=== PATIENT | female | born 1985 | race Caucasian/White ===

== ENCOUNTER → 2018-11-02 10:35 | Outpatient (CLI) | payer MEDICAID, SELFPAY ==
[2018-11-02 14:14] LABS: Progesterone Level 23.19 ng/mL (See Comment)
--- OUTSIDE RECORDS SUMMARY | 2019-02-03 18:51 | XMS RPT_ITS ---
:1985 Author Organization OHIP Care Team Providers Name Role Phone Pallavis, Donnell Attending Unavailable Seals, Donnell Attending Unavailable Seals, Donnell Attending Unavailable Vlad, Sis Attending Unavailable Self Referral, Patient Primary Care Unavailable Vlad, Sis Admitting Unavailable Vlad, Sis Attending Unavailable Self Referral, Patient Primary Care Unavailable Vlad, Sis Attending Unavailable Self Referral, Patient Primary Care Unavailable Vlad, Sis Admitting Unavailable Vlad, Sis Attending Unavailable Self Referral, Patient Primary Care Unavailable Vlad, Sis Attending Unavailable Self Referral, Patient Primary Care Unavailable Vlad, Sis Admitting Unavailable PROBLEMS PROBLEMS DATE TYPE CONDITION / CODE ATTENDING STATUS SOURCE 11/15/2018 Unknown O02.1 - Missed Donnell Fonseca [facility] [place] [facility] Community O02.1(ICD-10) Hospital Repository 11/11/2018 Unknown N97.0 - Female SealDonnell loya [facility] associated with Hospital anovulation / Repository N97.0(ICD-10) 11/11/2018 Unknown N91.2 - SealDonnell loya Active [place] Amenorrhea, Community unspecified / Hospital N91.2(ICD-10) Repository PROCEDURES PROCEDURES No Procedure Records FoundRESULTS RESULTS HCG TITER QUANT., Collected: 11/15/2018 Status: F Source: SHANA SERUM 3:02 PM [facility] [place] TYPE CODE TESTS RESULT OUT OF RANGE REFERENCE UNITS LAB L700.8000 <9 non-preg mIU/mL Normal HCG < 1 QUANT. Performed By: #### L700.8000 #### [facility] [address] [place], [address] PROGESTERONE LEVEL Collected: 11/11/2018 Status: F Source: SHANA 1:04 PM [facility] [place] TYPE CODE TESTS RESULT OUT OF REFERENCE UNITS RANGE LAB L509.4001 See Comment ng/mL Progesterone Normal 0.76 Result Comment: Progesterone Reference Table: UNITS Female: Follicular 0.15 - 1.40 ng/mL Luteal 3.34 - 25.56 ng/mL Mid-luteal 4.44 - 28.03 ng/mL Postmenopausal 0.0 - 0.73 ng/mL : 1st Trimester 11.22 - 90.00 ng/mL 2nd Trimester 25.55 - 89.40 ng/mL 3rd Trimester 48.40 -422.50 ng/mL Performed By: #### L509.4001 #### [facility] [address] [place], [address] HCG TITER QUANT., Collected: 11/11/2018 Status: F Source: SHANA SERUM 1:04 PM [facility] [place] TYPE CODE TESTS RESULT OUT OF RANGE REFERENCE UNITS LAB L700.8000 <9 non-preg mIU/mL Normal HCG 3 QUANT. Performed By: #### L700.8000 #### [facility] [address] [place], [address] PROGESTERONE LEVEL Collected: 11/02/2018 Status: F Source: SHANA 10:46 AM [facility] [place] Order Comment: TODAY IS CYCLE DAY 25. TYPE CODE TESTS RESULT OUT OF REFERENCE UNITS RANGE LAB L509.4001 See Comment ng/mL Progesterone Normal 23.19 Result Comment: Progesterone Reference Table: UNITS Female: Follicular 0.15 - 1.40 ng/mL Luteal 3.34 - 25.56 ng/mL Mid-luteal 4.44 - 28.03 ng/mL Postmenopausal 0.0 - 0.73 ng/mL : 1st Trimester 11.22 - 90.00 ng/mL 2nd Trimester 25.55 - 89.40 ng/mL 3rd Trimester 48.40 -422.50 ng/mL Performed By: #### L509.4001 #### [facility] [address] [place], [address] IGP W/HPV RFX Collected: 08/18/2018 Status: F Source: [facility] [id number] 4:15 PM [facility] REPOSITORY Order Comment: LMP: 8/27/18 TYPE CODE TESTS RESULT OUT OF RANGE REFERENCE UNITS LAB [id number](LO INC) Normal See Ref Lab Diagnosis: Report Performed By: #### [id number] #### [facility] Send Outs Subsection [facility] [place] [address] PATHOLOGY ([facility]) Observed: 08/18/2018 Status: F Source: [facility] 12:00 AM REPOSITORY FINAL GYNECOLOGIC CYTOLOGY REPORT [id number] SPECIMEN ADEQUACY Satisfactory for Evaluation. Endocervical cells/transformation zone component present. GENERAL CATEGORIZATION Negative for Intraepithelial Lesion or Malignancy DESCRIPTIVE DIAGNOSIS Reactive cellular changes associated inflammation and repair. COMMENT Reviewed by a pathologist due to previous abnormal history. CLINICAL HISTORY LMP: 07/12/2018 SPECIMEN (A) SCREENING CERVICAL/ENDOCERVICAL THIN PREP VIAL Performed at [facility], [address] [place] [address] Screened by: DAVID OWEN Driver Manager Signed Out by: BREA BYNUM M.D. Reported: 08/20/2018 Performed By: #### HOUSEHOLD REFRIGERATION MECHANIC #### [facility] [address] [place] [address] IGP W/HPV RFX Collected: 02/04/2018 Status: F Source: [facility] [id number] 4:57 PM [facility] REPOSITORY Order Comment: LMP- 01/02/2018 TYPE CODE TESTS RESULT OUT OF RANGE REFERENCE UNITS LAB [id number](LO INC) Normal See Ref Lab Diagnosis: Report Performed By: #### [id number] #### SANTIAG[facility] Send Outs Subsection [address] [place] [address] PATHOLOGY ([facility]) Observed: 02/04/2018 Status: F Source: [facility] 12:00 AM REPOSITORY FINAL GYNECOLOGIC CYTOLOGY REPORT [id number] SPECIMEN ADEQUACY Satisfactory for Evaluation. Endocervical cells/transformation zone component present. GENERAL CATEGORIZATION Negative for Intraepithelial Lesion or Malignancy DESCRIPTIVE DIAGNOSIS Shift in vaginal gil suggestive of bacterial vaginosis. COMMENT Reviewed by a pathologist due to previous abnormal history. CLINICAL HISTORY LMP: 01/02/2018 SPECIMEN (A) SCREENING CERVICAL/ENDOCERVICAL LIQUID-BASED PAP Performed at [facility], [address] [place] [address] Screened by: DAVID OWEN Driver Manager Signed Out by: DMITRI RENE M.D. Reported: 02/16/2018 Performed By: #### HOUSEHOLD REFRIGERATION MECHANIC #### [facility] [address] [place] [address] ALLERGIES ALLERGIES DATE TYPE / CODE NAME / CODE REACTION SEVERITY SOURCE Drug/[id number] codeine [id number] [address]) System Repository ENCOUNTERS ENCOUNTERS ADMIT/DISCHARGE ACCOUNT NUMBER ADMITTING ENCOUNTER LOCATION SOURCE CLASS 11/15/2018 [id number] Ambulatory [facility] ding:WOBLAB Repository 11/11/2018 [id number] Ambulatory [facility] ding:[facility] Repository 11/02/2018 [id number] Ambulatory [facility] ding:WOBLAB Repository 08/18/2018/08/18/20 [id number] Vlad, Sis [address] [facility] 08/18/2018/08/18/[id number] System :[facility] Repository om: Room 1 08/18/[id number] Repository 08/09/2018/08/09/[id number] System :[facility] Repository 02/04/2018/02/05/20 [id number] Vlad, Sis [address] ding[facility] Repository 02/04/2018/02/05/20 [id number] Vlad, Sis [address] :[facility] Repository om: Room 2 PAYERS PAYERS ENCOUNTER GUARANTOR PAYER SUBSCRIBER SOURCE 11/15/2018 FINN Primary FINN Saldana [id number] Insurance:CIELOBIN HEMPHILL: [facility] avi Number: [id number] [id number] Repository [address]Ogw: 440) Date:2018-11-15 O [phone] (KE) [address]ATTN: [place] [address]QR: 11/15/2018 Secondary NOT GIVENUNK Shana Insurance:SELF PAY [facility] Number: Effective Repository Date:2018-11-15 11/11/2018 FINN Primary FINN Shana [id number] Insurance:CARESOURCEP CHRISTOPHERDOB: [facility] Number: [id number] [id number] Repository [address]Xtq: 440) Date:2018-11-11P O [phone] (HP) [address]ATTN: [place] [address]UF: 11/11/2018 Secondary NOT GIVENUNK [place] Insurance:SELF PAY [facility] Number: Effective Repository Date:2018-11-11 11/02/2018 FINN Primary FINN [place] [id number] Insurance:CARESOURCEP CHRISTOPHERDOB: [facility] Number: [id number] [id number] Repository [address]Ofw: 440) Date:2018-11-02P O [phone] () [address]ATTN: [place] [address]LT: 11/02/2018 Secondary NOT GIVENUNK [place] Insurance:SELF PAY [facility] Number: Effective Repository Date:2018-11-02 08/18/2018 FINN L Primary [facility]N L [facility] Insurance:CARESOURCE CHRISTOPHERDOB: [facility] MCAIDPolicy Number: [id number] System [facility] [address] Effective [facility] [address] Repository [address] [place] [address] Date:2018-08-[address] [place] [address]Ylu: [id number] [phone]: Name:CD:[id number] (HP) [address] [place] [address] ()Tel: [phone]) [phone]: ([phone] 08/18/2018 [facility]1500 CHRISTOPHERDOB: [facility] [id number] [facility] Repository [address] [place] [address] Number: Effective [address] [address]Xix: Date:2018-08-18 [phone]: [id number] (HP) Name:CD:[id number] O (HP)Tel: (000) [address] [phone] (WP) [phone]: 08/18/2018 [facility] olicy Number: [id number] Repository [facility] [id number] Date:Plan [place] [phone]: Name:[facility] [phone]: [id number], [place] (HP) [phone]: [phone] (HP) [phone] 08/09/2018 [facility]: Insurance:1500 CHRISTOPHERDOB: [facility] [id number] [facility] Repository [address] [place] [address] Number: Effective [place], [place] [id number]: Date:2018-02-04 [phone]: [id number] (HP) Name:CD:[id number] O (HP)Tel: (000) [address], [place] [phone] (WP) [phone]: 02/04/2018 FINN L Primary FINN [place]ERTSB: [facility] Number: [id number] [facility] [address] Repository [address] [place] [address] Date:2018-02-04 - 1100[facility] [place] [place]Mar[place] [id number]: [id number] [id number]: Name:CD:[id number] (HP) [address], [place] (HP)Tel: (000) [phone]: (WP) [phone] 02/04/2018 FINN L Primary FINN [place]ERTSB: Insurance:[address] [place], [place] [address]B: [facility] [id number] [facility] [address] Repository [address] [place] [address] Number: Effective [address], [place] [id number]: Date:2017-07-30 - [phone]: [id number] (HP) Name:CD:[id number] O (HP)Tel: (000) [address], [place] [phone] (WP) [phone]:
== END ==
PROVIDERS: Visit Provider Obstetrics & Gynecology
DX: N97.0 Female infertility associated with anovulation (principal)
CPT/HCPCS: 36415; 84144

== ENCOUNTER → 2018-11-11 13:02 | Outpatient (CLI) | payer MEDICAID, SELFPAY ==
[2018-11-11 16:41] LABS: Progesterone Level 0.76 ng/mL (See Comment)
[2018-11-11 19:51] LABS: hCG Titer Quant., Serum 3 mIU/mL (<9 non-preg)
== END ==
PROVIDERS: Visit Provider Obstetrics & Gynecology
DX: N91.2 Amenorrhea, unspecified (principal); N97.0 Female infertility associated with anovulation
CPT/HCPCS: 36415; 84144; 84702

== ENCOUNTER → 2018-11-15 15:01 | Outpatient (CLI) | payer MEDICAID, SELFPAY ==
[2018-11-15 16:32] LABS: hCG Titer Quant., Serum < 1 mIU/mL (<9 non-preg)
== END ==
PROVIDERS: Visit Provider Obstetrics & Gynecology
DX: O02.1 Missed abortion (principal)
CPT/HCPCS: 36415; 84702

== ENCOUNTER → 2018-12-27 14:10 | Outpatient (CLI) | payer MEDICAID, SELFPAY ==
[2018-12-27 17:39] LABS: Chlamydia Trachomatis by PCR Negative (Negative); Neisserai gonorrhoeae by PCR Negative (Negative); Probe Check PASS; Sample Adequacy Control PASS; Specimen Processing Control PASS
[2018-12-31 18:36] LABS: HPV Reflexed? NOT INDICATED
== END ==
PROVIDERS: Referring Provider Obstetrics & Gynecology; Visit Provider Obstetrics & Gynecology
DX: Z12.4 Encounter for screening for malignant neoplasm of cervix (principal)
CPT/HCPCS: 87491; 87591; 88175; G0145

== ENCOUNTER → 2019-01-11 11:37 | Outpatient (CLI) | payer MEDICAID, SELFPAY ==
[2019-01-11 14:03] LABS: Color, Urine Yellow (Yellow); Glucose, Dipstick 50 mg/dl (Normal); Ketone-Dipstick Negative (Negative); Leukocyte Esterase-Dipstick Negative /ul (Negative); Nitrite-Dipstick Negative (Negative); Occult Blood-Urine Negative /ul (Negative); Protein-Dipstick Negative (Negative); Specific Gravity, Urine 1.015 (1.002-1.030); Urine Bilirubin Dipstick Negative (Negative); Urine Clarity Sl. Cloudy (Clear); Urine Urobilinogen Normal (Normal)
[2019-01-11 14:04] LABS: Absolute Lymphocyte Count 0.98 X10^3/ul (0.83-4.51); Absolute Neutrophil Count 2.8 X10^3/uL (2.0-7.7); Basophil# 0.01 X10^3/uL; Basophil% 0.2 % (0-1); Eosinophils% 2.2 % (0-5); Hematocrit 39.9 % (37-47); Lymphocyte # 0.98 X10^3/ul (4.0); Lymphocyte % 21.5 % (19-41); Mean Corp Hgb Conc 32.6 g/gl (32-36); Mean Corpuscular Hgb 29.8 pg (27.0-32.0); Mean Corpuscular Volume 91.5 fL (81-99); Mean Platelet Vol. 11.2 fl (6.2-12.0); Monocyte# 0.68 X10^3/uL; Monocyte% 14.9 % (0-10); Neutrophil # 2.77 X10^3/uL (2.7-7.7); Platelet Count 218 K/mm3 (150-450); RBC Distribution Width CV 13.2 % (11.6-14.6); RBC Distribution Width SD 43.2 fl (35.1-43.9); Red Blood Count 4.36 M/mm3 (4.2-5.4); White Blood Count 4.6 K/mm3 (4.4-11.0)
[2019-01-11 14:10] LABS: POSITIVE COUNT NO; POSITIVE DIFFERENTIAL NO; POSITIVE MORPHOLOGY NO
[2019-01-11 14:19] LABS: Thyroid Stim Hormone (TSH) 3.35 uIU/mL (0.358-3.74)
[2019-01-11 14:31] LABS: COTININE Drug Screen Negative (<200 ng/mL)
[2019-01-11 14:47] LABS: Amphetamine Urine VISTA NEGATIVE (<1000 ng/mL); Barbiturate Urine VISTA NEGATIVE (< 200 ng/mL); Benzodiazepine Urine VISTA NEGATIVE (< 200 ng/mL); Cocaine Urine VISTA NEGATIVE (< 300 ng/mL); Ecstacy Urine VISTA NEGATIVE (< 500 ng/mL); Methadone Urine VISTA NEGATIVE (< 300 ng/mL); PCP Urine VISTA NEGATIVE (< 25 ng/mL); THC Urine VISTA NEGATIVE (< 50 ng/mL); Vista UDS pH Range 7
[2019-01-11 14:59] LABS: HIV - WCH Non-Reactive (Nonreactive); Rubella IgG 184.7 IU/mL
[2019-01-12 12:22] LABS: HEPATITIS B SURFACE AG Negative (Negative); Hep C Antibodies <0.1 s/co ratio (0.0-0.9)
[2019-01-14 03:11] LABS: Prenatal RPR NONREACTIVE (NONREACTIVE)
== END ==
PROVIDERS: Visit Provider Obstetrics & Gynecology
DX: Z34.81 Encounter for supervision of other normal pregnancy, first trimester (principal)
CPT/HCPCS: 36415; 80307; 81002; 84443; 85025; 86703; 86762; 86803; 87340

== ENCOUNTER → 2019-05-25 10:07 | Outpatient (CLI) | payer MEDICAID, SELFPAY ==
[2019-05-25 10:42] LABS: Hemoglobin 10.8 g/dl (12.0-15.0); Mean Corp Hgb Conc 33.8 g/gl (32-36); Mean Corpuscular Hgb 30.2 pg (27.0-32.0); Mean Corpuscular Volume 89.4 fL (81-99); Mean Platelet Vol. 10.5 fl (6.2-12.0); Platelet Count 174 K/mm3 (150-450); RBC Distribution Width CV 12.1 % (11.6-14.6); Red Blood Count 3.58 M/mm3 (4.2-5.4); White Blood Count 5.8 K/mm3 (4.4-11.0)
[2019-05-25 10:44] LABS: Glucose Challenge Gest 1H 50g 118 mg/dL (70-140); Scan Indicated on CBC? Y/N NO
== END ==
PROVIDERS: Visit Provider Obstetrics & Gynecology
DX: Z34.83 Encounter for supervision of other normal pregnancy, third trimester (principal)
CPT/HCPCS: 36415; 82950; 85027

== ENCOUNTER 2019-07-18 11:05 | Outpatient (CLI) | payer MEDICAID, SELFPAY ==
[2019-07-18 11:35] LABS: Red Blood Cells-Urine 0 SEEN /hpf (0-5)
[2019-07-18 11:42] LABS: Color, Urine Yellow (Yellow); Glucose, Dipstick 100 mg/dl (Normal); Ketone-Dipstick 15 mg/dl (Negative); Leukocyte Esterase-Dipstick 25 /ul (Negative); Nitrite-Dipstick Negative (Negative); Occult Blood-Urine Negative /ul (Negative); Protein-Dipstick 15 mg/dl (Negative); Urine Bilirubin Dipstick Negative (Negative); Urine Clarity Sl. Cloudy (Clear); Urine Urobilinogen Normal (Normal); Urine pH 6.5 (5.0 - 8.0)
[2019-07-18 11:56] LABS: Bacteria 2+ /hpf (None Seen); Mucous, Urine 1+ /hpf (<or=2+); Squamous Epithelial Cells - UA 5-10 SEEN /hpf (5-10); White Blood Cells 0-5 SEEN /hpf (0-5)
[2019-07-18 12:07] VITALS: BMI 26.4
[2019-07-18] MEDS: Acetaminophen 500 MG Tablet PO (12:46)
[2019-07-18 13:05] LABS: Hemoglobin 9.6 g/dL (12.0-15.0); Mean Corpuscular Hgb 27.3 pg (27.0-32.0); Mean Corpuscular Volume 85.2 fL (81-99); Platelet Count 170 K/mm3 (150-450); RBC Distribution Width CV 12.6 % (11.6-14.6); RBC Distribution Width SD 38.5 fl (35.1-43.9); Red Blood Count 3.52 M/mm3 (4.2-5.4); White Blood Count 8.3 K/mm3 (4.4-11.0)
--- NOTE | 2019-07-18 16:36 | OB.TRI.NOTE ---
History of Present Illness Date of Service: 07/18/19 Was patient seen by the physician?: Yes Reason For Visit: RULE OUT LABOR Date of Service: 07/18/19 Final JARROD: 08/18/19 Final JARROD Source: US <20 weeks Gestational age: 35 Weeks and 4 Days History of Present Illness: 33 yo [id number] female with h/o C section deliveries presents with LLQ pain. Started during night a few nights ago and woke from sleep. no recent tylenol taken. Pain went away and now returned. +FM no vaginal bleeding. Feeling some UCs (after noting on monitor, and more aware with monitor on) Allergies codeine Allergy (Verified 07/18/19 12:14) Hives Laboratory Studies: Laboratory Tests 07/18/19 07/18/19 Range/Units 12:40 11:20 WBC 8.3 (4.4-11.0) K/mm3 RBC 3.52 L (4.2-5.4) M/mm3 Hgb 9.6 L (12.0-15.0) g/dL Hct 30.0 L (37-47) % MCV 85.2 (81-99) fL MCH 27.3 (27.0-32.0) pg MCHC 32.0 (32-36) g/dL RDW Std Deviation 38.5 (35.1-43.9) fl RDW Coeff of Jessica 12.6 (11.6-14.6) % Plt Count 170 (150-450) K/mm3 MPV 11.0 (6.2-12.0) fl Urine Color Yellow (Yellow) Urine Clarity Sl. Cloudy (Clear) Urine pH 6.5 (5.0 - 8.0) Ur Specific [place] 1.020 (1.002-1.030) Urine Protein 15 H (Negative) mg/dl Urine Glucose (UA) 100 H (Normal) mg/dl Urine Ketones 15 H (Negative) mg/dl Urine Occult Blood Negative (Negative) /ul Urine Nitrite Negative (Negative) Urine Bilirubin Negative (Negative) mg/dL Urine Urobilinogen Normal (Normal) mg/dl Ur Leukocyte Esterase 25 H (Negative) /ul Urine RBC 0 SEEN (0-5) /hpf Urine WBC 0-5 SEEN (0-5) /hpf Ur Squamous Epith Cells 5-10 SEEN (5-10) /hpf Urine Bacteria 2+ (None Seen) /hpf Urine Mucus 1+ (<or=2+) /hpf Physical Exam General: Alert, Oriented x3, Cooperative, No apparent distress HEENT: Atraumatic, EOMI Abdomen: Soft, Gravid - tender LLQ, no rebound, no voluntary guarding. FOOT CUTTER: Normal external genitalia Cervix Dilation (cm): 0 Station: -3 Effacement (%): 0 NST - FHR Rate Baby A Baseline: 120-130s avg variability. Accels with prolonged to 190s Variability:: Moderate Accelerations:: 15 x 15 Decelerations:: None NST Reactive:: Yes, Appropriate for gestational age FHR Category:: Category I Uterine Activity:: Irregular UCs. Irritability. And UCs q 1-12 min Impression/Plan 33 yo [id number] female with h/o C section deliveries False labor. Likely musculoskeletal pain. UA -- 2+ bacteria. Will send for culture. Sp Gr 1.020 CBC -- normal WBC. Anemic Inc po fluids. Iron rich foods. Maternity support belt applied, and Tylenol given with improvement noted. Home to rest. Continue comfort measures. RTO for next PNV as scheduled.
== END 2019-07-18 13:20 | disposition home or self-care (01) ==
LOC: WPOUT 11:13 → WP 07-19 13:32
PROVIDERS: Referring Provider Obstetrics & Gynecology; Visit Provider Obstetrics & Gynecology
DX: O47.03 False labor before 37 completed weeks of gestation, third trimester (principal); Z3A.35 35 weeks gestation of pregnancy; O34.219 Maternal care for unspecified type scar from previous cesarean delivery; Z88.5 Allergy status to narcotic agent
CPT/HCPCS: 59025; 59050; 81001; 85027; 87086; 99218; G0378

== ENCOUNTER 2019-08-11 05:22 | Inpatient (IN) | payer MEDICAID, SELFPAY ==
[2019-08-11] VITALS (20 sets, daily range): BP systolic 90–131; BP diastolic 51–84; PULSE 51–80; RESP 14–18; TEMP 36.1–36.7; O2SAT 98–100; BMI 26.7
[2019-08-11] MEDS: Lactated Ringers 1,000 ML 999 ML IV (05:42)
[2019-08-11 06:01] LABS: Absolute Lymphocyte Count 1.26 X10^3/uL (0.83-4.51); Absolute Neutrophil Count 4.1 X10^3/uL (2.0-7.7); Basophil# 0.02 X10^3/uL; Basophil% 0.3 % (0-1); Eosinophil# 0.13 X10^3/uL; Eosinophils% 2.1 % (0-5); Hematocrit 30.6 % (37-47); Hemoglobin 9.5 g/dL (12.0-15.0); Lymphocyte # 1.26 X10^3/ul (4.0); Lymphocyte % 20.7 % (19-41); Mean Corpuscular Hgb 26.4 pg (27.0-32.0); Mean Platelet Vol. 11.3 fl (6.2-12.0); Monocyte# 0.52 X10^3/uL; Monocyte% 8.5 % (0-10); NRBC Flagged by Analyzer 0 % (0-5); Neutrophil # 4.11 X10^3/uL (2.7-7.7); Neutrophil % 67.4 % (47-70); Platelet Count 169 K/mm3 (150-450); RBC Distribution Width CV 15.8 % (11.6-14.6); RBC Distribution Width SD 48.3 fl (35.1-43.9); White Blood Count 6.1 K/mm3 (4.4-11.0)
[2019-08-11] MEDS: Lactated Ringers 1,000 ML 150 ML IV (06:44)
[2019-08-11] MEDS: Sodium Citrate/Citric Acid 30 ML UDC PO (07:10)
--- NOTE | 2019-08-11 07:24 | HP.PCM_ITS ---
History and Physical Date of Ad[place]: 08[place]11[place]19 [facility] [place] - [place]ORY AND PHYSICAL (08/11/2019) Name: FINN CHERRY History of This : This is a 34-year-old patient who presents for her fourth section. She also desires permanent sterilization. OB Physician: JUAQUIN [place]'s Physician: [facility] ...................................................................... : 1985 Age: 34 Address: [address] [place] [address] Phone: H) [phone] Insurance Carrier: [employer] CLAIMS DEPT [id number] Emergency Contact: RAINER CHERRY [phone] ...................................................................... Final JARROD: 08/18/19 By Ultrasound: 8 weeks 5 days PARITY: (G-Total Pregnancies P-Fullterm,Premature,Induced AB,Spont AB, Ectopics, Multiple,Living) JARROD CONFIRMATION: By LMP: 11/11/18 Initial Exam: 08/18/19 By First Ultrasound Exam: 08/21/19 Final JARROD: 08/18/19 BLOOD TYPE: AFP: 1 HR PG: GBS: Rublla titer (>10 immune)-- Hepatatis B frankie AG-- CULTURES:-- OB PROBLEM LIST: Declines AFP and CF. Allergic to Codeine. Their 4th baby. Husb has 2 adult children & 5 grandchildren. 3 prior C-sections ---First at [facility]- plans RCS with tubal. Tour or office Childbirth class suggested. Prior tubal reversal ALLERGIES: Codeine Hives and/or rash MEDICATIONS: metformin 500 mg tablet one tab daily for 10 days then two tabs daily for next 10 days then three tabs daily 28 mg iron-800 mcg tablet 1 daily Prometrium 200 mg capsule one capsule po twice daily SOCIAL HISTORY: Smoking - Never Alcohol Use - occasionally not while Diet - balanced Diet, caffeine < 2 drinks per day and Water tries for 40-60 oz daily. 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 Job Description - Illicit Drug Use - denies use of street drugs Sexual Activity - Residence - [place]/ and children Place of - [place] Spouse-Sig Other Name - Rainer Cherry Spouse-Sig Other Occupation - Retired Spouse-Sig Other Phone No - [phone] Children Name(s) - 3 living ages 14,10, 7 (as of Dec 2018) PRIOR DELIVERY HISTORY DEL DATE GEST LAB WT LB WT OZ TYPE ANES LABOR TX 04 Dec 21 31 2 4 2 C-Sec Spinal No 15 Feb 11 40 0 8 0 C-Sec Spinal No Oct 18 3 0 0 0 Sab None No 26 Jul 08 40 0 7 8 C-Sec Spinal No ANTEPARTUM FLOW CHART VISIT GE RTC FU F F FL U U DATE WK MD WKS HT PN HR M SS BP ED WT FL GL D EF ST __ ____ ___ __ __ ___ __ __ __ ___ __ __ __ ___ __ 19 Jul JMW 3 38 + + 108/80 sl 179 tr - 11 Jul 36 JMW 1 36 + + 104/72 sl 179 tr - 04 Jul 35 JMW 1 35 + + 130/72 tr 178 tr - Jun JMW 2 34 + 100/70 sl 176 - - Jun 14 JMW 3 31 + + 110/70 0 173 - - Jun 11 JMW 3 27 + + 102/78 0 165 - 1+ May 08 DS 4 24 ? + + 130/74 0 165 - - April 03 DS 4 20 ? + + 114/60 0 157 - - Feb 28 DS 4 15 ? + O 114/68 0 151 - - Jan 24 DS 4 11 ? U+ O 124/66 0 146 - - Dec 24 DS 4 + O 112/70 143 - - ANTEPARTUM NOTE(S): Aug 04 2019: feeling well. Csection papers signed. Jul 27 2019: feeling well. Jul 20 2019: Ctxs-occas, Seen in [facility] over then weekend,Feeling Better Jul 06 2019: feeling well. Jun 15 2019: feeling well. Some dizziness and nausea today. May 25 2019: feeling well. Glucola drawn. Apr 27 2019: Glucola/Instructions Given,Round Ligament PAins Mar 30 2019: see note Mar 01 2019: see note Feb 01 2019: see note Jan 11 2019: occas. pain in LRQ. dg COMPREHENSIVE ANTEPARTUM NOTE(S): Jul 27 2019: Feeling well; reports active FM; denies UCs, VB, LOF; discussed warning signs, s/s Labor, when to call/come in; RCS scheduled for 08/11/19RTO 1 week(s) for PNV - KVW Jul 06 2019: Feeling well, reports active FM, denies VB, LOF; some restleness with sleeping;; discussed ways to enhance sleep, s/s of labor, when to call; planning repeat c/section Apr 27 2019: Doing well no complaints. Good movement. GCT and CBC next visit. Mar 30 2019: Doing well. Feeling some movement. Anatomical US with no anomalies noted. There is normal growth, placentation, and umbilical cord. Mar 01 2019: Some round ligament stretching noted. No FM noted yet. Declines genetics testing. Feeling much better off Metformin. kbm Mar 01 2019: Doing well. No complaints. Anatomical US next visit. Feb 01 2019: Having some nausea. Will stop metformin now. Continue progesterone. No bleeding. US with good movement and normal heart beat. labs reviewed and are normal. o+ blood type. Jan 11 2019: Some lower abdominal pain. US today with CRL c/w previous dating. Small CL cyst noted R ovary. NOB nurse intake completed today. labs ordered. Jan 11 2019: Finn and Rainer are here for NOB nurse visit planning a RCS at [facility] w spinal, [place] [place] and . Finn is a G 5 P 3 and this is their 4 th baby together. Rainer has two adult children from a previous relationship and 5 grandchildren. 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 They tried to adopt prior to her tubal reversal in May 2018. They are pleased about the . Their children are 14, 10 and 7 years old. JARROD is 08-21-19 w RCS scheduled 08-11-19. This will be her first del at [facility]. She has an allergy to Codeine. No allergies to food, latex or environment. Her diet is balanced with about two cups of tea daily and 40-60 oz of water. Importance of protein in diet discussed and increasing water. She is a lifetime non smoker, denies street drug use and drinks alcohol occ but not in pg. 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 Genetics Screening form completed noting only her meds: metformin and Prometrium. They decline AFP and CF tests. Warning signs in pg reviewed as well as otc meds ok to take, lifting restriction of 20-15 #, reaching office after hours, wearing seatbelt always and low on abdomen w understanding voiced. They were given a copy of What to Expect today. US done and routine labs drawn. She's had chickenpox, outdoor cats only and is aware of litter box issues. Thursday Childbirth Class in our office or OB tour and Sibling Class at [facility] suggested. Info given on these. Enc to call w any concerns. Visit lasted about one hour. Cassie GE. Dec 27 2018: Finn is here with her for missed menses appt. She relates LMP of 11/11, +UPT today in office, approx EDC /. She is not on PNV and Rx is sent and she may add DHA if desires. Her insurance will not cover DHA. She had tubal reversal and concerned about ectopic . Due for pap and cultures today. Educational materials provided and reviewed Encouraged increased po fluids, adding approx 300 extra calories per day, 30 minutes of exercise 5x/wk. Plans R C/S at [address] discussion with Dr Fonseca. LMT Nov 12 2018: PT is a 33 yo female, G-4 P-3 here today due to bleeding and . PT had a + UPT at home on . PT started bleeding last night and is getting heavier. Cramping in her back. Pts LMP was 10/09/2018 and took clomid days 3-7 . UPT in office today is negative. Oct 19 2018: PT is a 33 yo female, G-3 P-3 here today for a follow up appt to clomid check. PT LMP was 10/09/2018. PT states she took clomid cycle days 3 through 7. PT is cycle day 11 today. PT was taking the Metformin 3 tabs per day, but was making ehr nauseated, so cut back to 2 tabs for 2 days and improved, returned to 3 tabs today and got nauseated again.dg Sep 09 2018: Finn is a 33 yr old new pt to the practice, here w/her , Rainer, to discuss becoming . Rainer has 2 children from a pre vious relationship; they have 3 children together ages 13, 10, 7. Periods have always been irregular, skipping months. Conceived her children on Clomid. Hx HSG in the past. Hx C/S x 3, Tubal after the last. Tubal Reversal in 05/2018. Periods since May: 05/18--, 07/12--, 08/29--. Both are not interested in using ocp's to regulate periods, they want to start use of Clomid. Periods are reported as heavy changing a tampon and pad q hr. CBC done prior to Tubal Reversal showed Hgb as normal. No medical problems. Abd. surgieres as above. On no meds. Non-smoker. Pap current as of 08/17/18 done in [place]; they were not happy with prior provider. No STD's for either partner. kbm REVIEW OF SYSTEMS: GENERAL - Denies fever, or chills SKIN - Denies rash, new skin lesions, or change in moles EYES - Denies blurred vision, or change in visual acuity EARS - Denies ear pain, or difficulty hearing NOSE - Denies nasal congestion, discharge, or bleeding MOUTH - Denies sore throat, or difficulty swallowing NECK - Denies pain or swelling RESPIRATORY - Denies shortness of breath, cough, wheezing CARDIOVASCULAR - Denies palpitations, chest pain, orthopnea, PND, peripheral edema, syncope or claudication GASTROINTESTINAL - Denies nausea, vomiting, diarrhea, constipation, Denies abdominal pain, melena and or bright red blood GENITOURINARY - Denies dysuria, frequency of urination, urgency, or hesitancy MUSCULOSKELETAL - Denies joint or muscle pain, or back pain NEUROLOGICAL - Denies localized numbness, weakness, or tingling PSYCHIATRIC - Denies depression, anxiety, substance abuse or suicide attempts ENDOCRINE - Denies heat or cold intolerance, weight loss or gain, increasing thirst HEMATO-IMMUNOLOGIC - Denies easy bruising, bleeding, oral ulcerations or recurrent infections GENETICS SCREENING: Age 35+ years: Yes Thalassemia: No Neural Tube Defect: No Down Syndrome: No ERICA-SACHS: No Sickle Cell Disease: No Hemophilia: No Musc. Dystrophy: No Cystic Fibrosis: No-declines screening [place] Chorea: No Mental Retardation: No Fragile X: No Other genetic: No Other defects: No SABs/still births: Yes x1 Drugs since LMP: Yes INFECTION HISTORY: High risk AIDS: No High risk Hepatitis: No Exposed to TB: No Exposed to Herpes: No Rash/viral illness since LMP: No History of STD: No MENSTRUAL HISTORY: *Menses Amount/Duration: 5-9 daysMenses Regularity: RegularFrequency: m onthlyBCP's at Conception: NoMenarche (Age Onset): 11* PAST SUMMARY: PARITY: 1. Total Pregnancies............ 5 2. Full Term Pregnancies........ 3 3. Premature.................... 1 4. Abortions - Induced.......... 0 5. Abortions - Spontaneous...... 0 6. Ectopics..................... 0 7. Multiple Births.............. 0 8. Living Children.............. 3 PAST #1: Date of :.................. 12/20/04 Gestation Weeks:................ 31 Length of labor(hours):......... 2 Sex:............................ M Weight-lbs:............... 4 Weight-oz:................ 2 Type of Delivery:............... C-Sect Type of Anesthesia:............. Spinal Place of Delivery:.............. [place]. Treatment of Labor?:.... No Comment: PIH AT 30W. NICU 30 D. PAST #2: Date of :.................. 08/11/08 Gestation Weeks:................ 40 Length of labor(hours):......... 0 Sex:............................ F Weight-lbs:............... 7 Weight-oz:................ 8 Type of Delivery:............... C-Sect Type of Anesthesia:............. Spinal Place of Delivery:.............. [facility] Treatment of Labor?:.... No Comment: PAST #3: Date of :.................. 02/28/11 Gestation Weeks:................ 40 Length of labor(hours):......... 0 Sex:............................ M Weight-lbs:............... 8 Weight-oz:................ 0 Type of Delivery:............... C-Sect Type of Anesthesia:............. Spinal Place of Delivery:.............. [facility] Treatment of Labor?:.... No Comment: PAST #4: Date of :.................. 11/09/18 Gestation Weeks:................ 3 Length of labor(hours):......... 0 Sex:............................ UNKNOWN Weight-lbs:............... 0 Weight-oz:................ 0 Type of Delivery:............... Sab Type of Anesthesia:............. None Place of Delivery:.............. HOME Treatment of Labor?:.... No Comment: PHYSICAL EXAMINATION General Appearence: 34 yo female in no acute distress Vital Signs: AF, VSS Heart: RRR without rubs or gallops Lungs: CTA x 2 Breasts: deferred Abdomen: gravid Pelvis: Cervix: Presentation: cephalic Station: Fetus: Size: AGA Movement: present Heart: present Labs for : FINN CHERRY since 11/21/2018 ORDER DATEIN DESCRIPTION VALUE UNITS RANGE A+ COMMENT CBC-COMPLETE BLOOD CNT NO DIFF 07/18/19 NOTE Original Ordering Provider: Keerthi Henao WBC 8.3 K/mm3 4.4-11.0 RBC 3.52 M/mm3 4.2-5.4 L HGB 9.6 g/dL 12.0-15.0 L HCT 30.0 % 37-47 L MCV 85.2 fL 81-99 MCH 27.3 pg 27.0-32.0 MCHC 32.0 g/dL 32-36 RDW CV 12.6 % 11.6-14.6 RDW SD 38.5 fl 35.1-43.9 PLT 170 K/mm3 150-450 MPV 11.0 fl 6.2-12.0 Reviewed by SARI CULTURE, URINE 07/18/19 NOTE Original Ordering Provider: Keerthi Henao Urine Culture Culture exhibits no growth. Reviewed by SARI Reviewed by SARI URINALYSIS, COMPLETEw 07/18/19 NOTE Original Ordering Provider: Keerthi Henao COLOR Yellow Yellow CLARITY Sl. Cloudy Clear GLUCOSE, UR 100 mg/dl Normal H BILIRUBIN URINE Negative mg/dL Negative KETONE UR 15 mg/dl Negative H SP.GR. DIPSTX 1.020 1.002-1.030 PH UR 6.5 5.0 - 8.0 PROT DIPSTX 15 mg/dl Negative H UROBILI Normal mg/dl Normal NITRITE UR Negative Negative OCCULT BLOOD-UR Negative /ul Negative LEUK ESTERASE 25 /ul Negative H WBC 0-5 SEEN /hpf 0-5 RBC-UA 0 SEEN /hpf 0-5 SQUAM EPI 5-10 SEEN /hpf 5-10 BACTERIA 2+ /hpf None Seen MUCUS, URINE 1+ /hpf <OR=2+ Reviewed by SARI CBC-COMPLETE BLOOD CNT NO DIFF 05/25/19 NOTE Original Ordering Provider: Sari Hurd WBC 5.8 K/mm3 4.4-11.0 RBC 3.58 M/mm3 4.2-5.4 L HGB 10.8 g/dl 12.0-15.0 L HCT 32.0 % 37-47 L MCV 89.4 fL 81-99 MCH 30.2 pg 27.0-32.0 MCHC 33.8 g/gl 32-36 RDW CV 12.1 % 11.6-14.6 RDW SD 39.0 fl 35.1-43.9 PLT 174 K/mm3 150-450 MPV 10.5 fl 6.2-12.0 Reviewed by SARI GLUCOSE CHALLENGE GEST 1H 50G 05/25/19 NOTE Original Ordering Provider: Sari Hurd GLU GEST 50G 1H 118 mg/dL 70-140 Reviewed by SARI RPR 01/11/19 NOTE w Original Ordering Provider: Ced Fonseca RPR NONREACTIVE NONREACTIVE Reviewed by CED HEPATITIS C ANTIBODIES 01/11/19 NOTE Original Ordering Provider: Ced Fonseca HEP C AB <0.1 s/co ratio 0.0-0.9 Negative: < 0.8 Indeterminate: 0.8 - 0.9 Positive: > 0.9 The CDC recommends that a positive HCV antibody result be followed up with a HCV Nucleic Acid Amplification test (109431). HEPATITIS B SURFACE AG 01/11/19 NOTE Original Ordering Provider: Ced Fonseca HB SURF AG Negative Negative Performed at: [address] [id number] [employer] Facilitator: Faheem Erickson PhD, Phone: [phone] Reviewed by CED T AND S-NO CHARGE W/PNP 01/11/19 Reason for Type AND Screen/Red Cells: Surgery? [facility]~[address] [place], [address]~ BLOOD TYPE GEL O POSITIVE N AB SCREEN GEL NEGATIVE N Reviewed by CED HIV - [facility] 01/11/19 NOTE Original Ordering Provider: Ced Fonseca HIV - [facility] Non-Reactive Nonreactive Reviewed by CED RUBELLA IGG 01/11/19 NOTE Original Ordering Provider: Ced Fonseca RUBELLA IGG 184.7 IU/mL Antibody results Interpretation of Immune Status < 5 IU/ml Presumed Non-immune 5 - < 10 IU/ml Equivocal > or = 10 IU/ml Presumed Immune Reviewed by CED NICOTINE URINE DRUG SCREEN 01/11/19 NOTE Original Ordering Provider: Ced Fonseca TO BE CONFIRMED CONFIRMATORY TESTING FOR ALL POSITIVE URINE DRUG SCREEN RESULTS WILL ONLY BE SENT OUT UPON PHYSICIAN ORDER. The results of Urine Drug Screen methods provide only preliminary analytical test results. A more specific alternate chemical method must be used in order to obtain a confirmed analytical result. Gas chromatography/mass spectrometery (GC/MS) is the preferred confirmatory method. Clinical consideration and professional judgement should be applied to any drug of abuse test result, particularly when preliminary positive results are used. COT DRG SCREEN Negative <200 ng/mL Cotinine is the first-stage metabolite of Nicotine. Reviewed by CED mckeon URINE DRUG SCREEN (VISTA) 01/11/19 NOTE Original Ordering Provider: Ced Fonseca TO BE CONFIRMED CONFIRMATORY TESTING FOR ALL POSITIVE URINE DRUG SCREEN RESULTS WILL ONLY BE SENT OUT UPON PHYSICIAN ORDER. VISTA Urine Drug Screen methods provide only preliminary analytical test results. A more specific alternate chemical method must be used in order to obtain a confirmed analytical result. Gas chromatography/mass spectrometery (GC/MS) is the preferred confirmatory method. Clinical consideration and professional judgement should be applied to any drug of abuse test result, particularly when preliminary positive results are used. URINE TCA TESTING MUST BE ORDERED SEPARATELY. USE TEST MNEMONIC: [facility]IST[facility] UDS PH 7 AMPHETAMINES NEGATIVE <1000 ng/mL BARBITIURATES NEGATIVE < 200 ng/mL BENZODIAZIPINE NEGATIVE < 200 ng/mL COCAINE NEGATIVE < 300 ng/mL ECSTACY NEGATIVE < 500 ng/mL METHADONE NEGATIVE < 300 ng/mL OPIATES NEGATIVE < 300 ng/mL PCP NEGATIVE < 25 ng/mL THC NEGATIVE < 50 ng/mL Reviewed by CED mckeon THYROID STIM HORMONE (TSH) 01/11/19 NOTE Original Ordering Provider: Ced mckeon TSH 3.35 uIU/mL 0.358-3.74 Reviewed by CED URINALYSIS, ROUTINE (DIPSTICK) 01/11/19 NOTE Original Ordering Provider: Ced Fonseca COLOR Yellow Yellow CLARITY Sl. Cloudy Clear GLUCOSE, UR 50 mg/dl Normal H BILIRUBIN URINE Negative mg/dL Negative KETONE UR Negative mg/dl Negative SP.GR. DIPSTX 1.015 1.002-1.030 PH UR 7.0 5.0 - 8.0 PROT DIPSTX Negative mg/dl Negative UROBILI Normal mg/dl Normal NITRITE UR Negative Negative OCCULT BLOOD-UR Negative /ul Negative LEUK ESTERASE Negative /ul Negative Reviewed by CED mckeon CBC W/DIFF, AUTOMATED 01/11/19 NOTE Original Ordering Provider: Ced Fonseca WBC 4.6 K/mm3 4.4-11.0 RBC 4.36 M/mm3 4.2-5.4 HGB 13.0 g/dl 12.0-15.0 HCT 39.9 % 37-47 MCV 91.5 fL 81-99 MCH 29.8 pg 27.0-32.0 MCHC 32.6 g/gl 32-36 RDW CV 13.2 % 11.6-14.6 RDW SD 43.2 fl 35.1-43.9 PLT 218 K/mm3 150-450 MPV 11.2 fl 6.2-12.0 NEUT% 61.0 % 47-70 LY% 21.5 % 19-41 MONO% 14.9 % 0-10 H EO% 2.2 % 0-5 BASO% 0.2 % 0-1 IM GRAN % 0.200 % 0.0-0.9 IG% - Immature Granulocytes (promyelocytes, myelocytes and metamyelocytes) > 1% indicates that a LEFT SHIFT is Present. ABSOLUTE NEUT 2.8 X10 3/uL 2.0-7.7 ABSOLUTE LYMPH 0.98 X10 3/ul 0.83-4.51 Reviewed by CED Reviewed by CED Reviewed by CED PAP I-G W/RFX HRHPV 12/27/18 NOTE Original Ordering Provider: Ced Fonseca DIAGN . NEGATIVE FOR INTRAEPITHELIAL LESION OR MALIGNANCY. THIS SPECIMEN WAS RESCREENED PART OF OUR GYM TEACHER PROGRAM. ADEQ . w Satisfactory for evaluation. No endocervical component is identified. An endocervical component is not commonly seen in the patient. PERFORM . Megan Núñez, Asphalt Mixing Machine Operator (ASCP) QC REV . Nara Thompson, Supervisory Asphalt Mixing Machine Operator (ASCP) TEST METHOD . This liquid based ThinPrep(R) pap test was screened with the use of an image guided system. COMM . . PAPSMR . The Pap smear is a screening test designed to aid in the detection of premalignant and malignant conditions of the uterine cervix. It is not a diagnostic procedure and should not be used as the sole means of detecting cervical cancer. Both false-positive and false-negative reports do occur. HPV RFLX . The HPV DNA reflex criteria were not met with this specimen result therefore, no HPV testing was performed. Performed at: [address] [id number] [employer] Facilitator: Cristy Juarez MD, Phone: [phone] Reviewed by CED JOYCE/NEL [facility] BY PCR 12/27/18 NOTE Original Ordering Provider: Ced RODRIGUEZ TRAC PCR Negative Negative NG BY PCR Negative Negative Reviewed by CED Impression /Plan: Term intrauterine for repeat and tubal with Filshie clips. Discussed risk benefits and alternatives and all questions have been answered. Preparations in progress for delivery.
[2019-08-11] MEDS: Cefazolin 2 GM in 0.9% Normal Saline 100 ML IV (07:45)
--- NOTE | 2019-08-11 08:43 | OP.PCM_ITS ---
Delivery Classification: Scheduled Final JARROD: 08/18/19 Final JARROD Source: US <20 weeks Gestational age: 39 Weeks and 0 Days stretch box tender: Angel Luis Avila Type of Anesthesia:: Spinal - With Duramorph Implants Used: None Date of Procedure: 08/11/19 Pre-Operative Diagnosis: Previous Section and Desires Permanent Sterilization Post-Operative Diagnosis: Previous Section and Desires Permanent Sterilization Indications: Prior and Desires Permanent Sterilization Description of Procedure: Surgeon: Adalid Hurd MD, FACOG Anesthesia: Bushra Coteat, CYBER SECURITY SYSTEMS ENGINEER Procedure: Repeat Low Transverse Cervical Section and Bilateral Tubal Occlusion with Filshie Clips Findings: Viable female infant with Apgars of 8/9 in occiput anterior presentation with clear amniotic fluid and normal three-vessel placenta. Indication: This is a 34-year-old who presents for her fourth at 39+ weeks gestation. She also desires permanent sterilization. care has otherwise been uneventful. The patient has been counseled regarding the risk and indications of this procedure including the possibility of bleeding infection and injury to surrounding structures such as bowel bladder. All questions were answered. Procedure: Patient was taken to the operating room where after spinal anesthesia was placed, the patient was prepped and draped in usual sterile fashion and a Law catheter was placed. The abdomen was entered through the patient's prior Pfannenstiel incision and peritoneum was entered bluntly. After developing a bladder flap on the lower uterine segment a low transverse incision was made on the uterus and head was easily delivered onto the operative field the nose mouth and oropharynx were bulb suctioned. Subsequently a viable female infant was born with Apgars of 8/9. The infant was noted to cry move all extremities vigorously on the operative field. The umbilical cord was doubly clamped and ligated and handed to the nursery personnel who were present for the delivery. Placenta was delivered and noted to be 3 vessels and normal. Uterus was exteriorized and remaining placental tissue was removed. After dilating the cervix with Hegar dilators and fingertip the uterus was then closed in 2 layers first with running locked 0 Vicryl suture followed by a second imbricating layer with 0 Vicryl suture. 0 Vicryl suture was then used in a horizontal mattress interrupted fashion to affect final hemostasis of the uterine incision line. Normal fallopian tubes and ovaries were visualized and ability clips were placed approximately 2 cm from the uterine fundus on each tube. Evidence of prior tubal re-anastomosis was noted. The uterus was returned to the pelvis. Hemostasis was noted and rectus abdominis muscles were reapproximated in the midline with interrupted Number 0 Vicryl suture in a horizontal mattress fashion. Fascia was closed with running Number 1 PDS Strata fix suture. Subcutaneous tissue was irrigated with copious amounts of saline solution and then closed with running 3-0 Vicryl suture. Skin was closed with 4-0 monocryl suture in a running subcuticular fashion. Steri strips, telfa, and tape were placed across the incision. The patient tolerated the procedure well and was taken to the recovery room in satisfactory condition. Sponge, needle, and instrument counts were all reportedly correct. EBL was less than 500 cc. Cefotan 2 gms IV was given prior to the procedure. Spicemen to Pathology: None Complications: None Amniotic Fluid Description: Clear Placenta Disposition: [facility] Specimen(s) sent to pathology: None Drain: Law to straight drain Cord Entanglement: None Cord Vessel Description: 3 Vessels Infant Gender: Female (1 minute): 8 (5 minute): 9 Antibiotic Given: Cefotan 2gm IV x1 Pt instructed on risks of surgery: Bleeding, Infection, Permanency, Failure Rate of 1 to 2%, Injury to surrounding structure(s) including bowel and bladder Complications: None - Admit VTE Documentation VTE Present on Admission: Yes VTE Mechan Device Prophylaxis: SCD's
[2019-08-11] MEDS: Oxytocin 30 units/NS 500 ml 30 UNITS/500 ML IV.SOLN 167 UNITS IV (08:45)
--- NOTE | 2019-08-11 08:51 | DCINST_ITS ---
Discharge Diet: No Restrictions Discharge Activity: May not drive while taking narcotic pain medications., May Shower, May Take a Tub Bath May resume sexual activity in: 4-6 weeks Lifting Restrictions: 20 pounds Additional Activity Instructions:: Nothing in the vagina for 4-6 weeks. You may return to work/school in 6 weeks. Call your doctor if your incision/area has: Continuous Slow Oozing, Sudden Increased Bleeding, Increased Pain/ Swelling, Increased Redness, Foul Smelling Discharge Call your doctor if you observe: Fever of 101 or Higher, Inability to urinate, Inability to have a bowel movement, Using more than one pad per hour Additional Instructions: If you experience any of the following, contact your healthcare provider. * Bleeding that soaks a pad every hour for 2 hours * Unrelieved incision or abdominal pain * Swelling, redness, discharge or bleeding from your incision or episiotomy site * Your incision begins to separate * Problems urinating (including inability to urinate or burning while urinating). * Visual changes * Severe headache * Flu-like symptoms * Pain or redness in one of both of your breasts * Pain, warmth, tenderness or swelling in your legs, especially the calf area * Frequent nausea and vomiting * Symptoms of depression or anxiety If you experience any of the following, call 911 or go to the nearest Emergency Room. * Chest pain * Problems breathing * Seizure activity * Partial or complete paralysis of a body part, slurred speech, weakness or drooping of the face, or a sudden inability to walk or hold your balance Allergies/Adverse Reactions: Allergies codeine Allergy (Verified 08/11/19 05:35) Hives Medications to take at Discharge Vits [Prenatabs FA] 1 tab PO DAILY 07/18/19 Docusate Sodium [Colace] 100 mg PO BID PRN PRN #60 cap 08/11/19 Oxycodone [Oxyir] 5 mg PO Q6H PRN PRN 7 Days #20 tab 08/11/19 The following prescriptions were given: Docusate Sodium [Colace] 100 mg PO BID PRN PRN #60 cap PRN Reason: Constipation Prescription Printed Oxycodone [Oxyir] 5 mg PO Q6H PRN PRN 7 Days #20 tab PRN Reason: Pain Score 6-10/10 Prescription Printed Follow-Up: Call to make an appointment with your doctor for an incision check in 1-2 weeks. You will also need a 6 week post- follow up appointment. Test results from this visit will be discussed in further detail at your follow- up appointment, if applicable. Please Follow Up With: Adalid Hurd MD - [phone] When: Call to make an appointment for an incision check in 2 weeks.
[2019-08-11] MEDS: Lactated Ringers 1,000 ML 100 ML IV ×2 (11:55→21:11)
[2019-08-11] MEDS: Ketorolac 30 MG/ML Syringe IV ×2 (14:20→21:08)
--- NOTE | 2019-08-11 14:54 | CPS ---
instructed patient, she will do when she is finished eating
--- NOTE | 2019-08-11 19:31 | NURSING ---
Patient denies light headedness or dizziness.
--- NOTE | 2019-08-11 19:52 | NURSING ---
Indwelling ballesteros catheter present. WNL.
[2019-08-12] VITALS (8 sets, daily range): BP systolic 86–97; BP diastolic 52–66; PULSE 68–81; RESP 15–18; TEMP 36.6–37; O2SAT 97–99
[2019-08-12] MEDS: Ketorolac 30 MG/ML Syringe IV ×4 (02:35→21:11)
--- NOTE | 2019-08-12 03:42 | NURSING ---
Patient denies dizziness or light headedness.
--- NOTE | 2019-08-12 04:14 | NURSING ---
Patient denies dizziness or lightheadedness.
[2019-08-12 04:59] LABS: Hematocrit 23.9 % (37-47); Hemoglobin 7.4 g/dL (12.0-15.0); Mean Corpuscular Hgb 26.4 pg (27.0-32.0); Mean Corpuscular Volume 85.4 fL (81-99); Mean Platelet Vol. 11.3 fl (6.2-12.0); Platelet Count 127 K/mm3 (150-450); RBC Distribution Width CV 15.9 % (11.6-14.6); RBC Distribution Width SD 48.1 fl (35.1-43.9); White Blood Count 7.8 K/mm3 (4.4-11.0)
--- NOTE | 2019-08-12 07:00 | NURSING ---
Encouraged patient to stand up and ambulate around the room. Patient states that she doesn't want to ambulate until her is present. Reminded patient the importance of early ambulation post . Patient verbalizes understanding.
[2019-08-12] MEDS: 0.9% Saline Lock 10 ML Syringe IV ×2 (08:48→21:11)
--- NOTE | 2019-08-12 10:14 | PCM.PN.OB ---
Subjective: Sore, but coping well, tolerating diet well, passing flatus; has been up and walked to bathroom this morning; well, infant is in nursery at this time Objective: AVSS IV saline well intacta Abdominal dressing dry and intact Fundus firm, midline, u/u, lochia scant - Physical Exam General: Alert, Oriented x3, Cooperative, No apparent distress HEENT: PERRLA, EOMI Oral: Moist Mucosa Neck: Supple Lungs: Clear to auscultation, Normal air movement Cardiovascular: Regular rate, Regular Rhythm Abdomen: Bowel Sounds Present, Soft, Non Tender, Non-Distended, Passing Flatus Extremities: No edema, Capillary Refill Less than 3 Seconds, No Calf Tenderness Skin: Incision - Pfannnenstiel incision well approximated with steri strips, without drainage, edema, erythema Musculoskeletal: No Tenderness to Palpation of Joints or Extremities Neurological: Cranial nerves II-XII grossly intact, Deep Tendon Reflexes 2+/4 and Symmetrical Psych/Mental Status: Normal Affect, Appropriate, Alert and oriented to time, place, person, mood and affect Vital Signs Temp Pulse Resp BP Pulse Ox 98.1 F 74 16 94/66 99 08/12/19 10:00 08/12/19 10:00 08/12/19 10:00 08/12/19 10:08/12/19 10:00 Oxygen Delivery Method Room Air Weight: 181 lb 3.52 oz Body Mass Index (BMI) 26.7 Intake and Output for Last 24 Hours 08/10/19 08/11/19 08/12/19 23:59 23:59 23:59 Intake Total 3346.5 / 3346.5 1246.67 / 1246.67 Output Total 625 / 625 1250 / 1250 Balance 2721.5 / 2721.5 -3.33 / -3.33 Laboratory Tests Past 24 Hrs 08/12/19 04:45 WBC 7.8 RBC 2.80 L Hgb 7.4 L Hct 23.9 L MCV 85.4 MCH 26.4 L MCHC 31.0 L RDW Std Deviation 48.1 H RDW Coeff of Jessica 15.9 H Plt Count 127 L MPV 11.3 Medical Necessity - Tobacco Use Smoking Status: Never smoker
[2019-08-12] MEDS: Acetaminophen 500 MG Tablet 1000 MG PO (10:16)
[2019-08-13 01:33] VITALS: BP 120/61; PULSE 76; RESP 16; TEMP 36.6; O2SAT 96
--- NOTE | 2019-08-13 02:11 | NURSING ---
Patient up ambulating to bathroom several times this shift. Gait steady and tolerating well. Incentive spirometer at bedside.
[2019-08-13] MEDS: Ibuprofen 600 MG Tablet PO (04:05)
[2019-08-13] MEDS: oxyCODONE 5 MG Tablet PO (05:12)
[2019-08-13 08:00] VITALS: BP 106/60; PULSE 65; RESP 16; TEMP 36.6
--- NOTE | 2019-08-13 09:04 | PN.OBGYN_ITS ---
Subjective: Patient without complaints. Tolerating diet well. Positive flatus. Breast- feeding going well. Wants to go home today. - Physical Exam Vital Signs Temp Pulse Resp BP Pulse Ox 97.9 F 76 16 106/60 96 08/13/19 08:00 08/13/19 01:33 08/13/19 08:00 08/13/19 08:00 08/13/19 01:33 Oxygen Delivery Method Room Air Weight: 181 lb 3.52 oz Body Mass Index (BMI) 26.7 Intake and Output for Last 24 Hours 08/11/19 08/12/19 08/13/19 23:59 23:59 23:59 Intake Total 3346.5 / 3346.5 1246.67 / 1246.67 Output Total 625 / 625 1950 / 1950 Balance 2721.5 / 2721.5 -703.33 / -703.33 Wound is clean, dry, intact. Good urine output. Minimal vaginal bleeding. Medical Necessity - Tobacco Use Smoking Status: Never smoker Assessment/Plan Doing well postoperative day #2 status post repeat and tubal. Some discomfort on the right side probably from Filshie clip which has resolved with some pain medication. Will discharge to home with routine instructions. Follow-up in 2 and 6 weeks.
== END 2019-08-13 11:20 | disposition home or self-care (01) | DRG 540 ==
PROVIDERS: Admitting Provider Obstetrics & Gynecology; Referring Provider Obstetrics & Gynecology; Visit Provider Obstetrics & Gynecology
PROC: 10D00Z1 Extraction of Products of Conception, Low, Open Approach (ICD-10-PCS; CPT 59514; principal; 2019-08-11 07:15)
DX: O34.211 Maternal care for low transverse scar from previous cesarean delivery (principal); Z30.2 Encounter for sterilization; Z37.0 Single live birth; Z3A.39 39 weeks gestation of pregnancy
CPT/HCPCS: 85025; 85027; 86850; 86900; 86901; 94762; 99218; J7120; A4216; G0378; J2405

== ENCOUNTER → 2021-09-26 16:49 | Outpatient (CLI) | payer MEDICAID, SELFPAY ==
[2021-09-26 17:24] LABS: Hematocrit 36.5 % (37-47); Hemoglobin 11.8 g/dL (12.0-15.0); Mean Corp Hgb Conc 32.3 g/dL (32-36); Mean Corpuscular Hgb 29.6 pg (27.0-32.0); Mean Corpuscular Volume 91.7 fL (81-99); Mean Platelet Vol. 11.4 fl (6.2-12.0); Platelet Count 171 K/mm3 (150-450); RBC Distribution Width CV 12.2 % (11.6-14.6); RBC Distribution Width SD 41.2 fl (35.1-43.9); Red Blood Count 3.98 M/mm3 (4.2-5.4); White Blood Count 4.1 K/mm3 (4.4-11.0)
[2021-09-26 18:15] LABS: Follicle Stimulating Hormone 3.8 mIU/mL; Luteinizing Hormone 17.8 mIU/mL; Prolactin 4.5 ng/mL; Thyroid Stim Hormone (TSH) 3.36 uIU/mL (0.358-3.74)
[2021-09-30 08:07] LABS: Testosterone Free 1.9 pg/mL (0.0-4.2)
[2021-10-03 14:03] LABS: 17-Hydroxyprogesterone 62 ng/dL (.)
== END ==
PROVIDERS: Visit Provider Obstetrics & Gynecology
DX: N93.9 Abnormal uterine and vaginal bleeding, unspecified (principal)
CPT/HCPCS: 36415; 82627; 82670; 83001; 83002; 83498; 84146; 84402; 84443; 85027; 82626

== ENCOUNTER → 2021-10-30 09:56 | Outpatient (CLI) | payer MEDICAID, SELFPAY ==
--- NOTE | 2021-10-30 | EMB_PTH ---
PATIENT: FINN DUFFY LOC: [facility]#:[id number] AGE/SX: 40/F ROOM: RE10/30/[address]: Dr. Koby Reeder MD : [id number] BED: DIS: SPEC #: [id number] RECD: 10/30/21 10:53 STATUS: MARIBEL ANDERSON #: [id number] ITALIA: 10/30/21 00:[address]: Koby Reeder DEPT: SURGICAL PATHOLOGY RECD BY: Kirill Foster Tissues: A - Endometrium, NOS B - Uterine cervix, NOS Procedures: Surgery Specimen Level IV HEADER OPERATION: Endometrial biopsy / cervical polypectomy PRE-OP DIAGNOSIS: N93.9, N84.1 TISSUE SUBMITTED: A ? Endometrial biopsy, B ? Cervical polyp MICROSCOPIC DIAGNOSIS A. Endometrium, biopsy: Secretory endometrium with glandular and stromal breakdown. B. Cervical polyp, biopsy: Fragments of benign squamous mucosa and mucoid material. AM:viktoria 10/31/2021 MICROSCOPIC DESCRIPTION Slides are reviewed. GROSS DESCRIPTION A - Received in fixative is one container labeled with the patient's name and designated endometrial biopsy. The specimen consists of multiple irregular fragments of red-logan soft tissue that in aggregate measure 2 x 2 x 0.2 cm. The specimen is totally submitted in one cassette. B - Received in fixative is one container labeled with the patient's name and designated cervical polyp. The specimen consists of light logan mucoid material aggregating to 1.5 x 1 x 0.1 cm. The specimen is totally submitted in one cassette. / AM:viktoria 10/30/21 TC:5 CPT: 21228 x2
== END ==
PROVIDERS: Visit Provider Obstetrics & Gynecology
DX: N93.9 Abnormal uterine and vaginal bleeding, unspecified (principal); N84.1 Polyp of cervix uteri
CPT/HCPCS: 88305